=== PATIENT | male | born 1940 | race Caucasian/White ===

== ENCOUNTER 2020-07-27 12:19 | Day surgery (SDC) | payer MEDICARE, OTHER ==
[~2020-07-27] VITALS: Ht 185.4 cm; Wt 82.0 kg
[2020-07-27] VITALS (9 sets, daily range): BP systolic 134–187; BP diastolic 69–89; PULSE 54–64; TEMP 97.7–98.7
[2020-07-27] MEDS ORDERED: XALATAN EYE DROPS OD (13:10)
[2020-07-27] MEDS ORDERED: PROTONIX 40MG T40 MG PO (13:15)
[2020-07-27] MEDS ORDERED: ELIQUIS 2.5 PO (13:15)
[2020-07-27] MEDS ORDERED: COZAAR 50MG50 MG/TAB PO (13:16)
[2020-07-27] MEDS ORDERED: BETAPACE 80MG80 MG PO (13:19)
[2020-07-27] MEDS ORDERED: OMEGA-3 1000 MG1 CAP PO (13:20)
[2020-07-27] MEDS ORDERED: ASPIRIN 81M81 MG/TA2 PO (13:20)
[2020-07-27] MEDS ORDERED: NORVASC 5MG5 MG/TAB PO (13:20)
[2020-07-27] MEDS ORDERED: MIRALAX PA17 GM/Dose PO (13:21)
[2020-07-27] MEDS ORDERED: AMOXICILLIN 50500 MG PO (13:21)
--- NOTE | 2020-07-27 14:01 | NUR ---
Patient was given 10 mg IV hydralazine for BP of 187/89. BP is re-checked 20 min after administration and is 137/65.
--- NOTE | 2020-07-27 14:31 | NUR ---
Patient voids 300 mL clear, yellow urine into urinal.
--- NOTE | 2020-07-27 20:14 | NUR ---
DENIES CHEST PAIN/SOA AT THIS TIME. CBI AT SLOW-MOD RATE WITH YELLOW WITH RED SEDIMENT OBSERVED. REPORTS NO BLADDER DISCOMFORT WITH RESTING IN BED QUIETLY BUT HAS SOME DISCOMFORT WITH SOME MOVEMENT AT TIMES. DENIES NAUSEA AT THIS TIME.
[2020-07-28] VITALS (8 sets, daily range): BP systolic 141–192; BP diastolic 67–89; PULSE 50–72; TEMP 97.4–98.4
--- NOTE | 2020-07-28 07:15 | NUR ---
CHANGE OF SHIFT REPORT GIVEN TO DAY SHIFT NURSE, COSTA JACOB.
--- NOTE | 2020-07-28 08:00 | NUR ---
Patient in bed resting. Alert and oriented x 3. Assessment complete. CBI infusing at very slow rate. Urine pink to red-tinged. SCDs to BLE. Encouraged increase activity/ambulation today. SBA to move patient to recliner. Denies further needs at this time.
--- NOTE | 2020-07-28 13:03 | NUR ---
Maintenance Mechanic offered prayer and support with patient while family was in room.
--- NOTE | 2020-07-28 13:52 | NUR ---
Plan: Home with Family Support with [facility] Possible SW met patient and DTR Hermniia in room. Patient reports having a somatic sx/ reaction to seeing blood in cath. Patient reports feeling dizzy and having an unsteady gait. Patient reports concern of not being steady on feet prior to returning home. Patient reports that he is fearful that he is constipated. PCP is Emmanuel Alexis, Dr. 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 Patient reports that he is not opposed to Home health service. Patient indicated that he may be fearful, staffed with in room about patient's concerns. Awaiting PT recommendations.
--- NOTE | 2020-07-28 16:15 | NUR ---
Contacted Dr. Wilson about restarting norvasc.
--- NOTE | 2020-07-28 18:58 | NUR ---
Patient doing well this afternoon, CBI clamped. Urine pink at this time after ambulation in room. B&O suppository given for bladder spasms. Prune juice also given at this time, patient concerned about constipation. Family at bedside througout the day. Denies further needs at this time. Will report off to plant operator/shift supervisor.
--- NOTE | 2020-07-28 21:27 | NUR ---
PT'S DAUGHTER REQUESTED A VISIT BY ELECTRICAL SIGN WIRER HELPER COURTROOM REPORTER. CAREER RESOURCE TECHNICIAN PUT IN A CALL BUT HAS RECEIVED NO RESPONSE FROM [facility] OF YET.
[2020-07-29 00:42] VITALS: BP 144/80; PULSE 56; TEMP 98.1
[2020-07-29 04:47] VITALS: BP 161/72; PULSE 50; TEMP 97.8
--- NOTE | 2020-07-29 04:55 | NUR ---
RESTING QUIETLY. CASTRO OUTPUT A VERY LIGHT PINK. NO c/o PAIN THIS MORNING.
--- NOTE | 2020-07-29 06:24 | NUR ---
PT'S CASTRO CATHETER D.C.'d. 6 BOTTLE ROUTINE REVIEWED WITH PT. URINAL AVAILABLE FOR PT.
[2020-07-29 07:26] VITALS: BP 192/83; PULSE 56; TEMP 96.2
--- NOTE | 2020-07-29 07:43 | NUR ---
Patient awake & alert. Breakfast ordered, denies nausea. Gill was DC this am by prior shift. Patient up to the bathroom & voided for the first time, no difficulty. pink tinged output no clots. 6 bottle routine started & patient understand plan of care. Greyson zaragoza
[2020-07-29 12:01] VITALS: BP 165/81; PULSE 52; TEMP 98.4
[2020-07-29 13:46] VITALS: PULSE 57
--- NOTE | 2020-07-29 14:05 | NUR ---
Patient ready for discharge. rounded. Discharge orders obtained. Patient tolerated lunch. His brother here to take him home. Patient completed 6 bottle routine. All discharge teaching reviewed. We discussed home med list & importance of holding eliquis, fish oil, & asa. Patient knows he has follow up appt on thursday. I also discussed with patient importance of monitoring his blood pressure at home & discussing with his PCP. Patient aware he has high blood presure, and needs to discuss with his PCP. Diet & activity restrictions reviewed & made patient aware he should call with any questions or concerns. Patient ambulated out with all belogings. Denies further questions or concerns.
== END 2020-07-29 14:11 | disposition home or self-care (01) ==
LOC: SDCO 12:19 → SURG 16:56 → SDCO 07-29 14:11
DX: C67.9 Malignant neoplasm of bladder, unspecified (principal); E78.00 Pure hypercholesterolemia, unspecified; I48.0 Paroxysmal atrial fibrillation; I10 Essential (primary) hypertension; I48.91 Unspecified atrial fibrillation; G47.33 Obstructive sleep apnea (adult) (pediatric); K21.9 Gastro-esophageal reflux disease without esophagitis; M19.90 Unspecified osteoarthritis, unspecified site; F32.9 Major depressive disorder, single episode, unspecified; F41.9 Anxiety disorder, unspecified; Z79.01 Long term (current) use of anticoagulants; Z86.73 Personal history of transient ischemic attack (TIA), and cerebral infarction without residual deficits; Z99.89 Dependence on other enabling machines and devices; Z95.2 Presence of prosthetic heart valve; Z79.82 Long term (current) use of aspirin; Z79.899 Other long term (current) drug therapy; Z80.52 Family history of malignant neoplasm of bladder
CPT/HCPCS: OP; J0360; J0690; J1100; J2405; J2704; J3010; J3480; J7120; Q9967